=== PATIENT | male | born 1975 | race African-American/Black ===

== ENCOUNTER 2017-05-15 15:39 | Emergency (ER) | payer OTHER ==
[~2017-05-15] VITALS: Ht 185.4 cm; Wt 72.1 kg
[~2017-05-15 15:39] MED LIST: BACTRIM,SEPT1 TABLET PO; CARAFATE1 GM PO; CETIRIZINE HCL10 M2 PO; DULERA 100 MCG/13 GM IH; ERGOCALCIF50000 UNIT PO; GABAPENTIN100 MG PO; HYDROCODON-ACE1 EAC7 PO; MOTRIN800 MG PO; NAPROSYN500 MG PO; NOHOMEMEDS; PERCOCET 5-3251 EACH PO; PERCOCET 5/31 TABLET PO; PRILOSEC OTC20 MG PO; PRILOSEC40 MG PO; PROAIR HFA8.5 GM IH; REGLAN10 MG PO; TRAMADOL HCL50 MG PO; VENTOLIN HFA18 GM IH; VICODIN,LORT1 TABLET PO; ZANTAC150 MG PO
[2017-05-15 15:41] VITALS: BP 135/62
[2017-05-15 18:24] LABS: APPEARANCE CLOUDY ((CLEAR)); BILIRUBIN NEGATIVE; BLOOD NEGATIVE; COLOR YELLOW ((YELLOW)); GLUCOSE (STRIP) NEGATIVE; KETONES NEGATIVE; LEUKOCYTES LARGE; NITRITE NEGATIVE; PROTEIN (STRIP) NEGATIVE; SPECIFIC GRAVITY 1.016 (1.000-1.030)
[2017-05-15 18:36] LABS: BACTERIA RARE /HPF; EPITHELIAL CELLS RARE /HPF; MUCUS TRACE /LPF; UCUL ADDED? YES; WHITE BLOOD CELLS TNTC /HPF (0-5)
[2017-05-16] MEDS ORDERED: CLEOCIN300 MG PO (12:28)
== END 2017-05-15 21:10 | disposition left against medical advice (07) ==
LOC: EME 15:39
DX: R30.0 Dysuria (principal); Z53.21 Procedure and treatment not carried out due to patient leaving prior to being seen by health care provider
CPT/HCPCS: 81003; 87077; 87086; 87185

== ENCOUNTER 2017-05-16 10:17 | Emergency (ER) | payer OTHER ==
[~2017-05-16] VITALS: Ht 185.4 cm; Wt 71.4 kg
[2017-05-16 11:34] LABS: SOURCE URINE
[2017-05-16 11:52] LABS: APPEARANCE CLOUDY ((CLEAR)); BILIRUBIN NEGATIVE; BLOOD SMALL; COLOR YELLOW ((YELLOW)); GLUCOSE (STRIP) NEGATIVE; KETONES NEGATIVE; LEUKOCYTES LARGE; NITRITE NEGATIVE; PROTEIN (STRIP) 30; UROBILINOGEN 0.2 MG/DL (0.2-1.0)
[2017-05-16 12:04] LABS: WHITE BLOOD CELLS TNTC /HPF (0-5)
[2017-05-16 12:05] LABS: BACTERIA NONE SEEN /HPF; EPITHELIAL CELLS NONE SEEN /HPF; MUCUS NONE SEEN /LPF; UCUL ADDED? YES
[2017-05-16] MEDS ORDERED: CLEOCIN300 MG PO (12:28)
[2017-05-16 12:48] VITALS: BP 124/73
[2017-05-17 13:16] LABS: CHLAMYDIA TRACHOMATIS NEGATIVE; NEISSERIA GONORRHOEAE POSITIVE
== END 2017-05-16 12:49 | disposition home or self-care (01) ==
LOC: EME 10:17
PROVIDERS: Emergency Medicine
DX: N34.2 Other urethritis (principal); L73.9 Follicular disorder, unspecified; Z88.0 Allergy status to penicillin; Z88.6 Allergy status to analgesic agent
CPT/HCPCS: 81003; 87086; 87491; 87591; 99281; 99283

== ENCOUNTER 2017-07-07 10:09 | Emergency (ER) | payer OTHER ==
[~2017-07-07] VITALS: Ht 182.9 cm; Wt 69.0 kg
[~2017-07-07 10:09] MED LIST changes: +CLEOCIN300 MG PO
[2017-07-07] MEDS ORDERED: LIDODERM 5% P1 PATCH TD (12:09)
[2017-07-07] MEDS ORDERED: MEDROL DOSEPAK4 MG PO (12:09)
[2017-07-07 12:38] VITALS: BP 123/68
== END 2017-07-07 12:40 | disposition home or self-care (01) ==
LOC: EME 10:09
DX: M54.5 Low back pain (principal); G89.29 Other chronic pain; F17.200 Nicotine dependence, unspecified, uncomplicated; Z88.0 Allergy status to penicillin; Z88.6 Allergy status to analgesic agent
CPT/HCPCS: 99281; 99283

== ENCOUNTER 2017-08-28 21:55 | Emergency (ER) | payer OTHER ==
[~2017-08-28] VITALS: Ht 182.9 cm; Wt 66.5 kg
[~2017-08-28 21:55] MED LIST changes: +LIDODERM 5% P1 PATCH TD; +MEDROL DOSEPAK4 MG PO
[2017-08-29 00:07] VITALS: BP 129/82
== END 2017-08-29 00:07 | disposition home or self-care (01) ==
LOC: EME 21:55
PROC: 0JQK0ZZ Repair Left Hand Subcutaneous Tissue and Fascia, Open Approach (ICD-10-PCS; principal; 2017-08-28)
DX: S61.215A Laceration without foreign body of left ring finger without damage to nail, initial encounter (principal); W26.9XXA Contact with unspecified sharp object(s), initial encounter; Y92.86 Slaughter house as the place of occurrence of the external cause; Y99.0 Civilian activity done for income or pay; J45.909 Unspecified asthma, uncomplicated; F17.200 Nicotine dependence, unspecified, uncomplicated; Z79.51 Long term (current) use of inhaled steroids; Z88.0 Allergy status to penicillin; Z88.6 Allergy status to analgesic agent
CPT/HCPCS: 73140; 99281; 99283